=== PATIENT | female | born 1945 | race Caucasian/White ===

== ENCOUNTER → 2017-02-01 | Outpatient (CLI) | payer MEDICARE, BC ==
--- NOTE | ~2017-02-01 | PFT ---
[id number] [facility]. [place], [place] [address] [id number] O MR#: [id number] NAME: JESSICA PINA ROOM: SEX: F STUDY DATE/TIME: 02/02/2017 : 1945 AGE: 71 STUDY DESCRIPTION: Attending Physician: Amilcar Sun M.D. Referring Physician: Amilcar Sun M.D. Primary Care Physician: Amilcar Sun M.D. PULMONARY DIAGNOSTIC REPORT EXAM Pulmonary function test Spirometry is normal. There is no significant response to bronchodilators. Flow volume loop shows some mild variability but no definite diagnostic abnormalities. Lung volumes show no definite restrictive defect. Diffusion capacity is mildly reduced at 66%. Isolated reduced diffusion capacity can be seen in early interstitial lung disease, pulmonary vascular disease, anemia, etc. Clinical correlation is needed. Dictated by... Daina Becker/suzanna TD: 02/03/2017 16:38 JOB #: [id number] PULMONARY DIAGNOSTIC REPORT Page 1 of 1
== END | disposition home or self-care (01) ==
LOC: CRC 09:34
DX: R06.00 Dyspnea, unspecified (principal)
CPT/HCPCS: 94060; 94726; 94729